=== PATIENT | female | born 1950 | race Caucasian/White ===

== ENCOUNTER → 2020-07-31 12:37 | Outpatient (CLI) | payer MEDICARE, OTHER, SELFPAY ==
[2020-07-31 15:01] LABS: Coronavirus 19 IgG Antibody Negative (Negative); Coronavirus 19 IgM Antibody Negative (Negative)
== END ==
PROVIDERS: Visit Provider Internal Medicine Gastroenterology
DX: Z01.818 Encounter for other preprocedural examination (principal); Z11.52 Encounter for screening for COVID-19; Z12.11 Encounter for screening for malignant neoplasm of colon
CPT/HCPCS: 36415; 86328

== ENCOUNTER 2020-08-03 07:46 | Day surgery (SDC) | payer MEDICARE, OTHER, SELFPAY ==
[2020-07-31 11:34] VITALS: BMI 34.4
[2020-08-03] VITALS (7 sets, daily range): BP systolic 80–172; BP diastolic 48–92; PULSE 60–107; RESP 16–18; TEMP 36.4–37; O2SAT 97–99
--- NOTE | 2020-08-03 08:18 | P.PN_ITS ---
[facility] Anesthesia Checklist - Patient Identification Patient Identification: Arm Band - Structural Data Admitted From: Home Planned Operative Procedure/s: egd/colonoscopy Consent for Planned Operative Procedure(s) Verified: Yes Verified Documents: Surgical Consent, History and Physical - NPO Status Verified Time NPO: 00:00 - Additional verifications Anesthesia Reactions: No Hx Blood Transfusions: No Blood Transfusion Reaction: No - Airway Assessment C-Spine Mobility Assessed: Yes (mp2) TMJ Mobility Assessed: Yes Dentition: Good Dentition - Neurological Assessment Level of Consciousness: Awake, Alert - Anesthesia Plan Anesthesia Risk discussed: Yes Anesthesia Plan: Verified ASA Class: II Anesthesia Type: MAC [facility] History I have reviewed the patient's past medical history: Yes Medical History: Reports:: Gastroesophageal Reflux Disease(GERD) Denies:: Cancer, Diabetes Mellitus Type 1, Diabetes Mellitus Type 2, Internal Pacemaker, Lung Disease, MRSA, Seizures *Have you ever received a pneumonia vaccine?: Yes *Have you received a flu vaccine this season?: Yes Other Medical History: Reports: Other (diverticulosis). Denies: Blood Transfusion Reaction Anesthesia experience/problems:: nac Laterality Cases: Bilateral: Cataract, Tonsillectomy Other Surgeries: Yes: Appendectomy, Hysterectomy-Partial. No: Pacemaker Amputation: No Fractures: No - *Social History Alcohol Intake: never Substance Use Type: denies use *Occupational Status:: retired Housing: house *Travel in the last 8 weeks: None Family Hx:: Unable to obtain
--- NOTE | 2020-08-03 08:19 | HMH.PROC ---
[facility] Procedure Note Procedure Note:: Upper Endoscopy Procedure Report: Esophagogastroduodenoscopy with cold biopsies Endoscopost: Paras Panchal II, MD Referring Physician: Aurora Woodward PA-C Date of Procedure: August 03, 2020 Equipment: Olympus GIF 180 standard upper endoscope Sedation: MAC sedation Indications: Mrs. Harper is a 70-year-old female who has had a prior history of reflux and dyspepsia. The patient does state that she had cholecystectomy in October 2018. In June, she developed sickness with nausea and some diarrhea. She received a 10-day course of antibiotics but continues to have symptoms. She had a CAT scan of the abdomen and pelvis on July 10, 2020. This did show mucosal thickening of the hepatic flexure of the sigmoid colon concerning for colitis. The patient also had lab work that showed normal hemoglobin 14.1 and hematocrit 42.4. Her C-reactive protein was 4 and her sedimentation rate was 7. She had normal liver and kidney function. The patient does report ongoing postprandial diarrhea with cramps in the lower left quadrant. She reports epigastric abdominal pain and discomfort with early satiety and belching. She has no vomiting. She has lost 14 pounds in the last 3 weeks. She did have diagnostic panendoscopy in December 2017. Procedure: Prior to the procedure, a history and physical exam was performed, and patient's medications and allergies were reviewed. The risks, benefits and alternatives of the sedation and procedure were discussed with the patient. All questions were answered and informed consent was obtained. The patient was brought to the procedure room. Patient identification and proposed procedure were verified by the physician and the nurse. The patient was placed in a left lateral decubitus position and the scope was passed under direct vision. Throughout the procedure, the patient's blood pressure, pulse, and oxygen saturations were monitored continuously. The upper GI endoscopy was accomplished without difficulty. The patient tolerated the procedure well. Findings: The scope was passed directly into the upper esophagus and advanced to the third portion of the duodenum. The post bulbar duodenum and duodenal bulb were normal with normal mucosa and conniventes. The scope was withdrawn through a normal duodenal bulb and pylorus into the stomach. There was evidence of linear reactive gastropathy of the antrum of the stomach. There was mild bile reflux. The remainder of the antrum, body and fundus of the stomach were grossly normal. Upon retroflexion there was a medium size 2 to 3 cm hiatal hernia. 2 biopsies were taken in the antrum and along the lesser curvature for histology to rule out gastritis and/or H pylori. The scope was then withdrawn into the esophagus. There was no evidence of reflux esophagitis or Castañeda's. There was a serrated Z-line and biopsies were obtained at the GE junction. There were tertiary contractions and mild dysmotility. The remainder of the esophageal mucosa was normal. Impression: 1. Nonerosive GERD with mild esophageal dysmotility and medium size 2 to 3 cm hiatal hernia 2. Linear reactive gastropathy Plan: I will follow-up the biopsies. The patient does have acute on chronic functional dyspepsia. I will proceed with colonoscopy based upon the CAT scan report and ongoing symptoms of diarrhea. We will discuss diet and treatment options.
--- NOTE | 2020-08-03 08:49 | HMH.PROC ---
[facility] Procedure Note Procedure Note:: Colonoscopy Procedure Report: Colonoscopy with cold snare polypectomy and cold biopsies Endoscopist: Paras Panchal II, MD Referring physician: Aurora Woodward PA-C Date of Procedure: August 03, 2020 Equipment: Olympus 180 variable stiffness pediatric colonoscope Sedation: MAC sedation Indication: Mrs. Harper is a 70-year-old female with the recent onset of crampy abdominal pain in the left lower quadrant and epigastrium. She has had nausea and diarrhea. She has lost 14 pounds in the last 3 to 4 weeks. The patient did have a colonoscopy for screening in December 2017 and she had 2 diminutive polyps (tubular adenoma x1/hyperplastic polyp x1) which were removed. She also had left-sided diverticulosis. The patient did receive 10 days of antibiotics but continues to have the cramps and diarrhea that occurs postprandially. She reports no rectal bleeding or family history of colon cancer. She did have a CT scan of the abdomen and pelvis that showed mucosal thickening of the hepatic flexure and the sigmoid colon concerning for regional colitis. Procedure: Prior to the procedure, a history and physical exam was performed, and patient's medications and allergies were reviewed. The risks, benefits and alternatives of the sedation and procedure were discussed with the patient. All questions were answered and informed consent was obtained. The patient was brought to the procedure room. Patient identification and proposed procedure were verified by the physician and the nurse. The patient was placed in a left lateral decubitus position and the scope was passed under direct vision. Throughout the procedure, the patient's blood pressure, pulse, and oxygen saturations were monitored continuously. The colonoscopy was accomplished without difficulty. The patient tolerated the procedure well. Findings: On digital rectal examination there was normal rectal tone. There were no external hemorrhoids. The colonoscope was introduced through the anal canal to the rectum and advanced to the cecum. The ileocecal valve and appendiceal orifice were identified. The scope was advanced a short distance into the ileum which appeared grossly normal. The scope was then withdrawn into the colon. The cecum, ascending and transverse colon and mucosa were grossly normal. Cold biopsies were taken from the right colon to rule out microscopic colitis. There was a diminutive 3 to 4 mm polyp in the descending colon removed via cold snare polypectomy. There were scattered extensive diverticuli throughout the descending and sigmoid colon (LEFT colon). The rectum itself was normal. Upon retroflexion within the rectum there were grade 1-2 internal hemorrhoids. The preparation was excellent throughout with [place] Preparation Score of 9. The cecal time was 12 minutes. Impression: 1. Diminutive descending colon polyp 2. Extensive left-sided diverticulosis 3. Grade 1-2 internal hemorrhoids Plan: I will follow-up the biopsies. I would consider dietary measures, fiber bulk (FiberCon), IBgard and antispasmodic (Bentyl or Levsin).
== END 2020-08-03 09:49 | disposition home or self-care (01) ==
LOC: OUTP 07:48
PROVIDERS: PCP Physician Assistant; Visit Provider Internal Medicine Gastroenterology
PROC: 0DJ08ZZ Inspection of Upper Intestinal Tract, Via Natural or Artificial Opening Endoscopic (ICD-10-PCS; CPT 43235; principal; 2020-08-03 08:30)
DX: K22.4 Dyskinesia of esophagus (principal); K21.9 Gastro-esophageal reflux disease without esophagitis; K63.5 Polyp of colon; K57.30 Diverticulosis of large intestine without perforation or abscess without bleeding; K64.0 First degree hemorrhoids; K44.9 Diaphragmatic hernia without obstruction or gangrene; K31.9 Disease of stomach and duodenum, unspecified; Z86.010 Personal history of colon polyps; Z90.49 Acquired absence of other specified parts of digestive tract; Z87.19 Personal history of other diseases of the digestive system
CPT/HCPCS: 43239; 45380; 45385; 88305; 88342